=== PATIENT | male | born 1995 | race Caucasian/White ===

== ENCOUNTER 2017-07-11 22:21 | Emergency (ER) | payer SELFPAY ==
--- NOTE | 2017-07-11 22:33 | NUR ---
PATIENT LEFT WITHOUT BEING SEEN BY DR. VIVEROS. NO FURTHER CARE PROVIDED FOR PATIENT. PT CALLED AND PT STATED HE WAS LEAVING BECAUSE HE FELT BETTER AFTER VOMITTING, AND HE REFUSED TO STAY TO BE SEEN. ER MD MADE AWARE.
== END 2017-07-11 22:32 | disposition left against medical advice (07) ==
LOC: MED 22:21
DX: Z53.21 Procedure and treatment not carried out due to patient leaving prior to being seen by health care provider (principal)